=== PATIENT | female | born 1995 ===

== ENCOUNTER 2022-07-04 04:38 | Outpatient (CLI) | payer OTHER | END 2022-07-04 04:39 | disposition EMS.NT | LOC: EMS 04:38 | DX: S01.81XA Laceration without foreign body of other part of head, initial encounter (principal); S51.811A Laceration without foreign body of right forearm, initial encounter; W25.XXXA Contact with sharp glass, initial encounter; Y92.003 Bedroom of unspecified non-institutional (private) residence as the place of occurrence of the external cause ==